=== PATIENT | male | born 2005 | race Caucasian/White ===

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

== ENCOUNTER 2023-09-05 16:08 | Emergency (ER) | payer MEDICAID ==
[2023-09-05 16:42] VITALS: PULSE 66
== END 2023-09-05 16:46 | disposition home or self-care (01) ==
LOC: JP.ED 16:08
DX: R06.4 Hyperventilation (principal); F41.9 Anxiety disorder, unspecified; Z88.0 Allergy status to penicillin; Z88.1 Allergy status to other antibiotic agents
CPT/HCPCS: 99283

== ENCOUNTER 2024-04-26 23:21 | Emergency (ER) | payer MEDICAID ==
[2024-04-26 23:34] VITALS: BP 119/66; PULSE 70
== END 2024-04-27 00:51 | disposition home or self-care (01) ==
LOC: JP.ED 23:21
DX: B30.1 Conjunctivitis due to adenovirus (principal); Z88.0 Allergy status to penicillin; Z88.1 Allergy status to other antibiotic agents
CPT/HCPCS: 99282; 99283

== ENCOUNTER 2024-04-29 13:56 | Emergency (ER) | payer OTHER, MEDICAID ==
[2024-04-29 16:09] VITALS: BP 118/59; PULSE 62
[2024-04-29] MEDS: Diphtheria/Tetanus Toxoids,Adult (Td) 0.5 ML SDV IM ONE (16:17)
== END 2024-04-29 16:15 | disposition home or self-care (01) ==
LOC: JP.ED 13:56
DX: S06.0X1A Concussion with loss of consciousness of 30 minutes or less, initial encounter (principal); Z88.0 Allergy status to penicillin; Z88.1 Allergy status to other antibiotic agents; Z23 Encounter for immunization; W11.XXXA Fall on and from ladder, initial encounter
CPT/HCPCS: 70450; 70450-26; 73630-26-LT; 73630-LT; 90471; 90714; 99284; 99284-25

== ENCOUNTER 2024-06-25 17:24 | Emergency (ER) | payer SELFPAY ==
[2024-06-25 17:36] VITALS: BP 121/63; PULSE 64
[2024-06-25 18:15] LABS: BASOPHILS ABSOLUTE AUTO 0.03 K/uL (0.00-0.10); BASOPHILS PERCENT AUTO 0.4 % (0.1-1.3); EOSINOPHILS ABSOLUTE AUTO 0.15 K/uL (0.00-0.40); EOSINOPHILS PERCENT AUTO 1.9 % (0.0-5.4); HEMATOCRIT 40.6 % (38.4-49.7); HEMOGLOBIN 14.9 g/dL (12.9-16.9); IMMATURE GRAN ABSOLUTE AUTO 0.03 K/uL (0.00-0.23); IMMATURE GRAN PERCENT AUTO 0.4 % (0.0-0.7); LYMPHOCYTES ABSOLUTE AUTO 1.72 K/uL (0.8-3.3); LYMPHOCYTES PERCENT AUTO 21.4 % (11.4-47.7); MEAN CORPUSCULAR HEMOGLOBIN 31.3 pg (31.6-35.5); MEAN CORPUSCULAR HGB CONC 36.7 g/dL (31.6-35.5); MEAN CORPUSCULAR VOLUME 85.3 fL (81.4-99.0); MONOCYTES ABSOLUTE AUTO 0.48 K/uL (0.20-0.90); NEUTROPHILS ABSOLUTE AUTO 5.63 K/uL (1.0-7.6); NEUTROPHILS PERCENT AUTO 69.9 % (40.0-78.1); PLATELET COUNT,PLT 153 K/uL (130-375); RED BLOOD CELL COUNT 4.76 M/uL (4.14-5.76)
[2024-06-25 18:16] LABS: BASE EXCESS VENOUS -2.3 mm/L; BICARBONATE,VENOUS 21.4 mmol/L; CARBOXYHEMOGLOBIN 4.2 % (0.0-1.6); METHEMOGLOBIN 0.8 %; OXYHEMOGLOBIN 75.1 %; PCO2 VENOUS 35.3 mm/Hg; PO2 VENOUS 40.5 mm/Hg; TOTAL HEMOGLOBIN 15.6 g/dL (13.5-18.0)
[2024-06-25] MEDS: Sodium Chloride 0.9% 100 ML IV SCH (18:30)
[2024-06-25] MEDS: Iopamidol 755 Mg/ML 100 ML Bottle IV SCH (18:30)
[2024-06-25 18:49] LABS: A/G RATIO 1.6 (1.2-2.2); ALANINE AMINOTRANSFERASE,ALT 23 U/L (12-78); ALKALINE PHOSPHATASE 73 U/L (46-116); ASPARTATE AMNIOTRANSFERASE,AST 21 U/L (15-37); BILIRUBIN TOTAL 0.8 mg/dL (0.2-1.0); BLOOD UREA NITROGEN,BUN 17 mg/dL (7-18); CALCIUM 8.9 mg/dL (8.5-10.1); CARBON DIOXIDE,CO2 24 mmol/L (21-32); CHLORIDE,CL 107 mmol/L (100-108); ESTIMATED GFR 110 mL/min (>60); GLUCOSE RANDOM 86 mg/dL (74-106); POTASSIUM,K 3.5 mmol/L (3.6-5.2); PROTEIN TOTAL,TP 6.5 g/dL (6.4-8.2); SODIUM,NA 141 mmol/L (140-148)
[2024-06-25 18:50] LABS: ANION GAP 13.5 mmol/L (5.0-14.0)
[2024-06-25 18:51] LABS: TROPONIN I HIGH SENSITIVITY < 4.0 pg/mL (<=60.3)
[2024-06-25 19:02] LABS: CORONAVIRUS COVID-19 NAA NEGATIVE (NEGATIVE); INFLUENZA A NAA NEGATIVE (NEGATIVE); INFLUENZA B NAA NEGATIVE (NEGATIVE); RESPIRATORY SYNCYTIAL VIR NAA NEGATIVE (NEGATIVE)
[2024-06-25 19:08] LABS: APPEARANCE,URINE CLEAR (CLEAR); BILIRUBIN,URINE NEGATIVE (NEGATIVE); COLOR,URINE YELLOW (YELLOW); GLUCOSE,URINE NEGATIVE (NEGATIVE); KETONES,URINE 15 mg/dL (NEGATIVE); LEUKOCYTE ESTERASE,URINE NEGATIVE (NEGATIVE); NITRITE,URINE NEGATIVE (NEGATIVE); OCCULT BLOOD,URINE NEGATIVE (NEGATIVE); PH,URINE 5.5 (5.0-8.0); PROTEIN,URINE NEGATIVE (NEGATIVE); UROBILINOGEN,URINE 0.2 EU/dL (0.2-1.0)
[2024-06-25 19:12] LABS: AMORPHOUS SEDIMENT,URINE NOT SEEN; AMPHETAMINES SCREEN, URINE NEGATIVE (NEGATIVE); BACTERIA,URINE RARE; BARBITURATE SCREEN,URINE NEGATIVE (NEGATIVE); BENZODIAZEPINES SCREEN,URINE NEGATIVE (NEGATIVE); EPITHELIAL CELLS,URINE NOT SEEN; METHAMPHETAMINES SCREEN, URINE NEGATIVE (NEGATIVE); MUCUS,URINE RARE; RBC,URINE NOT SEEN (0-5); WBC,URINE NOT SEEN (0-5)
[2024-06-25 19:13] LABS: METHADONE SCREEN, URINE NEGATIVE (NEGATIVE); OXYCODONE SCREEN,URINE NEGATIVE (NEGATIVE); PROPOXYPHENE SCREEN,URINE NEGATIVE (NEGATIVE); THC SCREEN,URINE 50 NG/ML NEGATIVE (NEGATIVE)
== END 2024-06-25 20:09 | disposition home or self-care (01) ==
LOC: JP.ED 17:24
DX: R07.89 Other chest pain (principal); Z88.0 Allergy status to penicillin; Z88.1 Allergy status to other antibiotic agents; Z79.899 Other long term (current) drug therapy
CPT/HCPCS: 0241U; 36415; 71275; 80053; 80305; 80307; 81001; 82803; 83605; 84145; 84484; 85025; 85379; 93005; 99285; J3490; Q9967

== ENCOUNTER 2024-11-24 22:59 | Emergency (ER) | payer MEDICAID ==
[2024-11-24 23:23] VITALS: BP 125/72; PULSE 64
[2024-11-24 23:36] LABS: AMPHETAMINES SCREEN, URINE NEGATIVE (NEGATIVE); BARBITURATE SCREEN,URINE NEGATIVE (NEGATIVE); BENZODIAZEPINES SCREEN,URINE NEGATIVE (NEGATIVE); METHADONE SCREEN, URINE NEGATIVE (NEGATIVE); METHAMPHETAMINES SCREEN, URINE NEGATIVE (NEGATIVE); OXYCODONE SCREEN,URINE NEGATIVE (NEGATIVE); PROPOXYPHENE SCREEN,URINE NEGATIVE (NEGATIVE); THC SCREEN,URINE 50 NG/ML NEGATIVE (NEGATIVE)
== END 2024-11-24 23:52 | disposition home or self-care (01) ==
LOC: JP.ED 22:59
DX: R41.0 Disorientation, unspecified (principal); R53.81 Other malaise; J45.909 Unspecified asthma, uncomplicated; F17.210 Nicotine dependence, cigarettes, uncomplicated; Z88.0 Allergy status to penicillin; Z88.1 Allergy status to other antibiotic agents; Z79.899 Other long term (current) drug therapy
CPT/HCPCS: 80305-QW; 99284

== ENCOUNTER 2025-01-25 18:59 | Emergency (ER) | payer SELFPAY ==
[2025-01-25 19:19] VITALS: BP 95/68; PULSE 60
[2025-01-25 19:47] LABS: BASOPHILS ABSOLUTE AUTO 0.03 K/uL (0.00-0.10); BASOPHILS PERCENT AUTO 0.5 % (0.1-1.3); EOSINOPHILS ABSOLUTE AUTO 0.16 K/uL (0.00-0.40); EOSINOPHILS PERCENT AUTO 2.9 % (0.0-5.4); HEMATOCRIT 47.2 % (38.4-49.7); HEMOGLOBIN 16.5 g/dL (12.9-16.9); IMMATURE GRAN PERCENT AUTO 0.4 % (0.0-0.7); LYMPHOCYTES ABSOLUTE AUTO 2.05 K/uL (0.8-3.3); LYMPHOCYTES PERCENT AUTO 37.1 % (11.4-47.7); MEAN CORPUSCULAR HEMOGLOBIN 31.1 pg (31.6-35.5); MEAN CORPUSCULAR VOLUME 88.9 fL (81.4-99.0); MONOCYTES ABSOLUTE AUTO 0.31 K/uL (0.20-0.90); MONOCYTES PERCENT AUTO 5.6 % (3.3-12.6); NEUTROPHILS ABSOLUTE AUTO 2.95 K/uL (1.0-7.6); NEUTROPHILS PERCENT AUTO 53.5 % (40.0-78.1); PLATELET COUNT,PLT 165 K/uL (130-375); RED BLOOD CELL COUNT 5.31 M/uL (4.14-5.76); WHITE BLOOD CELL COUNT,WBC 5.5 K/uL (3.2-11.0)
[2025-01-25 19:48] LABS: IMMATURE GRAN ABSOLUTE AUTO 0.02 K/uL (0.00-0.23)
== END 2025-01-25 20:32 | disposition home or self-care (01) ==
LOC: JP.ED 18:59
DX: B34.9 Viral infection, unspecified (principal); J45.909 Unspecified asthma, uncomplicated; Z88.1 Allergy status to other antibiotic agents; Z88.8 Allergy status to other drugs, medicaments and biological substances; Z88.0 Allergy status to penicillin
CPT/HCPCS: 36415; 85025; 99283

== ENCOUNTER 2025-01-27 21:43 | Emergency (ER) | payer SELFPAY ==
[2025-01-27 21:59] VITALS: BP 115/70
[2025-01-27 23:47] VITALS: PULSE 89
[2025-01-28] MEDS: Magnesium Citrate Solution 296 ML Bottle PO ONE (00:46)
== END 2025-01-28 00:55 | disposition home or self-care (01) ==
LOC: JP.ED 21:43
DX: K59.00 Constipation, unspecified (principal); J45.909 Unspecified asthma, uncomplicated; Z88.0 Allergy status to penicillin; Z88.1 Allergy status to other antibiotic agents
CPT/HCPCS: 99282; 99283; A9270-GY

== ENCOUNTER 2025-02-26 20:30 | Emergency (ER) | payer SELFPAY ==
[2025-02-26 20:55] VITALS: BP 120/73; PULSE 71
== END 2025-02-26 21:10 | disposition home or self-care (01) ==
LOC: JP.ED 20:30
DX: F41.9 Anxiety disorder, unspecified (principal); K21.9 Gastro-esophageal reflux disease without esophagitis; F17.210 Nicotine dependence, cigarettes, uncomplicated; Z88.0 Allergy status to penicillin; Z88.1 Allergy status to other antibiotic agents; Z86.16 Personal history of COVID-19
CPT/HCPCS: 99283

== ENCOUNTER 2025-03-10 01:09 | Emergency (ER) | payer SELFPAY ==
[2025-03-10 01:35] VITALS: BP 130/87; PULSE 64
== END 2025-03-10 01:56 | disposition home or self-care (01) ==
LOC: JP.ED 01:09
DX: G58.9 Mononeuropathy, unspecified (principal); K21.9 Gastro-esophageal reflux disease without esophagitis; F17.210 Nicotine dependence, cigarettes, uncomplicated; Z88.0 Allergy status to penicillin; Z88.1 Allergy status to other antibiotic agents; Z86.16 Personal history of COVID-19
CPT/HCPCS: 99283

== ENCOUNTER 2025-04-26 22:07 | Emergency (ER) | payer MEDICAID ==
[2025-04-26 22:37] VITALS: BP 115/69; PULSE 53
== END 2025-04-26 23:57 | disposition home or self-care (01) ==
LOC: JP.ED 22:07
DX: R42 Dizziness and giddiness (principal); J45.909 Unspecified asthma, uncomplicated; F17.200 Nicotine dependence, unspecified, uncomplicated; Z86.16 Personal history of COVID-19; Z88.0 Allergy status to penicillin; Z88.1 Allergy status to other antibiotic agents
CPT/HCPCS: 99284